=== PATIENT | male | born 1970 | race African-American/Black ===

== ENCOUNTER 2017-05-08 12:22 | Day surgery (SDC) | payer OTHER ==
[2017-05-04 15:10] VITALS: BMI 19.0
[2017-05-08] MEDS ORDERED: LIDOCAINE HCL/PF 2% SDV 5ML VIAL ONE (17:15)
[2017-05-08] MEDS ORDERED: PROPOFOL 20 ML ONE ×2 (17:15)
[2017-05-08] MEDS ORDERED: ceFAZolin SODIUM 1 GM VIAL IVPB ONE (17:25)
[2017-05-08] MEDS ORDERED: BUPIVACAINE HCL/PF 0.5% (5MG/ML) 10 ML VIAL ONE (17:29)
[2017-05-08] MEDS ORDERED: BUPIVACAINE HCL/PF 0.5% (5MG/ML) 10 ML VIAL IJ ONE (17:55)
--- NOTE | 2017-05-08 18:11 | OP ---
Operative Note - Note: Operative Date: 05/08/17 Pre-Operative Diagnosis: neoplasm of right testis Operation: right radical orchiectomy Findings: indurated mass involving right testis Post-Operative Diagnosis: Same as Pre-op Surgeon: Obi Johnson Anesthesia: General Specimens Removed: right testis
[2017-05-08] MEDS ORDERED: PROMETHAZINE HCL 25 MG/1 ML VIAL IVPUSH PRN (18:17)
[2017-05-08] MEDS ORDERED: oxyCODONE HCL 5 MG TABLET PO PRN (18:17)
[2017-05-08] MEDS ORDERED: ONDANSETRON 4 MG/2 ML VIAL IVPUSH PRN (18:17)
[2017-05-08] MEDS ORDERED: LACTATED RINGERS SOLUTION 1,000 ML IV SCH (18:30)
[2017-05-08 19:42] VITALS: BP 140/80; PULSE 64; TEMP 98
--- NOTE | 2017-05-09 08:04 | OP ---
DATE OF OPERATION: 05/08/2017 PREOPERATIVE DIAGNOSIS: Right testicular mass. POSTOPERATIVE DIAGNOSIS: Right testicular mass. PROCEDURE: Right radical orchiectomy. ATTENDING: Osmin Sexton MD ANESTHESIA: General. INDICATIONS: The patient has a history of a right testicular mass. The mass was documented on ultrasound and by physical examination. Tumor markers have been negative. The patient was warned that there was a possibility that no malignancy would be found, and this is a risk. However, given the presence of a neoplasm of uncertain behavior, it was recommended to remove the testes to evaluate the testes. The patient agreed to all risks and benefits of the procedure. He was also offered an opportunity to go for a second opinion which he did not feel was necessary. The patient was aware of the testicular mass and was able to palpate the mass himself. OPERATION: The patient was brought in the operating room, placed in supine position on the operating room table. Anesthesia and preoperative antibiotics were administered. A right inguinal incision was made. Sharp and blunt dissection was taken to the level of the spermatic cord. Spermatic cord was isolated. Spermatic cord and testes and all scrotal elements were brought exteriorly. The gubernaculum inferiorly was sharply and bluntly dissected, and electrocauterization was utilized. The scrotum was freed from any attachment to the testes and epididymis. Once this was accomplished, 2 clamps were placed on the spermatic cord. A knife was taken, and the cord was cut between the 2 clamps. The scrotal contents were sent to Pathology for evaluation. A suture ligature and a free tie were used for the proximal spermatic cord stump. The stitches were cut with a 2-inch in order to help identify the stump at a later date if need be. At this point, the wound was irrigated. A 2-layer closure was performed utilizing 3-0 Vicryl and subcuticular stitches. No complications were noted. Local anesthesia was placed into the wound. The disposition of the patient was to the recovery room. OSMIN SEXTON M.D. /[id number]
[2017-05-09] MEDS ORDERED: PATIENT'S OWN MEDICATION (NON-FORMULARY) (Oxycodone Hcl [Oxycodone Hcl] 10 MG) PO SCH (10:00)
[2017-05-09] MEDS ORDERED: GABAPENTIN 300 MG PO SCH (10:00)
[2017-05-09] MEDS ORDERED: CYCLOBENZAPRINE HCL PO SCH (22:00)
--- NOTE | 2017-05-12 16:26 | PATH ---
Surgical Pathology Report Patient Name: AVINASH RODGERS [facility]. Rec. #: [id number] /Age/Gender: 1970 (Age: 46) / M Account: [id number] Location: [facility] Taken: 05/08/2017 Received: 05/09/2017 Reported: 05/12/2017 Physicians: Obi Johnson Specimen(s) Received RIGHT TESTICLE Clinical History Benign neoplasm of right testis Final Diagnosis TESTIS, RADICAL ORCHIECTOMY: SERTOLI CELL NODULE WITH FOCAL CYSTIC CHANGE, 0.9 CM. SURROUNDING TESTICULAR TISSUE SHOW NORMAL SPERMATOGENESIS. SEE COMMENT. Comment: Immunohistochemical stains performed at [place], [place] ([id number]) and interpreted at [facility] show calretinin and Inhibin are focally positive (periphery), while negative for CD117 and OCT 3/4. Rare cells are positive for AE1/3. Electronically Signed Chelly Turner M.D. Gross Description Received in formalin labeled "right testicle," is a 30 g orchiectomy specimen including a 3.5 x 2.5 x 2.2 cm testicle, a 2.8 x 0.5 0.5 cm epididymis and a 5.5 cm in length portion of spermatic cord. Sectioning reveals a 0.9 x 0.8 x 0.6 cm saunders-faustin, cystic lesion at the inferior aspect of the testis, abutting the capsule. The remaining testis is unremarkable. Die Baker sections are submitted in 8 cassettes as follows: 1-spermatic cord margin of resection; 0-4-shovrtpc submitted lesion with surrounding normal parenchyma and capsule; 6-uninvolved normal testicular parenchyma and epididymis; 7-rete testis; 8-additional sections of spermatic cord. DL/05/09/2017 saudi05/09/2017
== END 2017-05-08 22:30 | disposition home or self-care (01) ==
LOC: JASU-SURG 12:22 → J5S 19:25 → JASU-SURG 22:30
PROVIDERS: ATTEND Urology
PROC: 0VT90ZZ Resection of Right Testis, Open Approach (ICD-10-PCS; principal; 2017-05-08 14:00)
DX: D40.11 Neoplasm of uncertain behavior of right testis (principal)
CPT/HCPCS: 88309-TC; 94760

== ENCOUNTER 2018-01-25 11:39 | Emergency (ER) | payer OTHER ==
--- NOTE | 2018-01-25 11:47 | PDOC ---
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 He states he was taking a shower, slipped and fell in the bathtub, bracing his fall with L hand. He c/o severe pain to L thumb and forefinger. He did not take anything prior to arrival. He states that he has dec sensation and ROM to his fingers at baseline, but he has decreased ROM today due to pain. No other injuries. Past History - Past Medical History Allergies/Adverse Reactions: Allergies Allergy/AdvReac Type Severity Reaction Status Date / Time No Known Allergies Allergy Verified 01/25/18 11:41 Home Medications: Ambulatory Orders NK [No Known Home Medication] 01/25/18 Anemia: No Asthma: No Cancer: No Cardiac Disorders: No CVA: No COPD: No CHF: No Dementia: No Diabetes: No GI Disorders: No Disorders: No HTN: No Hypercholesterolemia: No Liver Disease: No Seizures: No Thyroid Disease: No - Surgical History Orthopedic Surgery: Yes (hand sx-) - Suicide/Smoking/Psychosocial Hx Smoking History: Current every day smoker Have you smoked in the past 12 months: Yes Number of Cigarettes Smoked Daily: 10 'Breaking Loose' booklet given: 05/08/17 Hx Alcohol Use: Yes (rarely) Drug/Substance Use Hx: Yes (stoppeed 20 days ago) Substance Use Type: Alcohol, Marijuana Hx Substance Use Treatment: No Review of Systems - Review of Systems Able to Perform ROS?: Yes Comments:: GENERAL/CONSTITUTIONAL: No fever or chills. No weakness. HEAD, EYES, EARS, NOSE AND THROAT: No change in vision. No ear pain or discharge. No sore throat. MUSCULOSKELETAL: +Swelling and pain to L hand. No neck or back pain. SKIN: No rash NEUROLOGIC: No headache, vertigo, loss of consciousness, or change in strength/ sensation. *Physical Exam - Physical Exam Comments: GENERAL: Awake, alert, and fully oriented, in no acute distress HEAD: No signs of trauma EYES: PERRLA, EOMI, sclera anicteric, conjunctiva clear EXTREMITIES: +Tenderness and swelling to 1st and 2nd MCP joints of L hand with dec ROM due to pain. +Well-healed L wrist scar. Remainder of extremities with normal range of motion, no edema. No clubbing or cyanosis. No cords, erythema, or tenderness NEUROLOGICAL: Cranial nerves II through XII grossly intact. Normal speech, normal gait SKIN: Warm, Dry, normal turgor, no rashes or lesions noted. Medical Decision Making - Medical Decision Making 01/25/18 12:09 XR obtained to r/o fracture, percocet for pain. 01/25/18 12:57 XR reviewed, no acute findings. Stable for DC home. *DC/Admit/Observation/Transfer Diagnosis at time of Disposition: Hand sprain Qualifiers: Encounter type: initial encounter Laterality: left Qualified Code(s): S63.92XA - Sprain of unspecified part of left wrist and hand, initial encounter - Discharge Dispostion Disposition: HOME Condition at time of disposition: Stable Decision to Admit order: No - Referrals - Patient Instructions - Post Discharge Activity
[2018-01-25 11:58] VITALS: BP 126/81; PULSE 55; TEMP 98.2; BMI 22.6
== END 2018-01-25 13:06 | disposition home or self-care (01) ==
LOC: FER 11:39
DX: S63.92XA Sprain of unspecified part of left wrist and hand, initial encounter (principal); W18.39XA Other fall on same level, initial encounter; Y93.89 Activity, other specified; Y92.410 Unspecified street and highway as the place of occurrence of the external cause; F17.210 Nicotine dependence, cigarettes, uncomplicated
CPT/HCPCS: 73130-TC-LR-FY; 99282-25

== ENCOUNTER 2019-11-18 15:24 | Emergency (ER) | payer OTHER ==
--- NOTE | 2019-11-18 15:38 | PDOC ---
Rapid Medical Evaluation Time Seen by Provider: 11/18/19 15:37 Medical Evaluation: Allergies Allergy/AdvReac Type Severity Reaction Status Date / Time No Known Allergies Allergy Verified 06/26/19 10:19 11/18/19 15:38 I have performed a brief in-person evaluation of this patient. The patient presents with a chief complaint of:rhinorrhea Pertinent physical exam findings: stable, well theresa I have ordered the following:nothing The patient will proceed to the ED for further evaluation. Discharge Disposition - Diagnosis Rhinorrhea - Referrals - Patient Instructions - Post Discharge Activity
[2019-11-18 15:43] VITALS: BP 106/63; PULSE 64; BMI 22.6
--- NOTE | 2019-11-18 16:30 | PDOC ---
History of Present Illness - General Chief Complaint: Cold Symptoms Stated Complaint: RUNNING NOSE Time Seen by Provider: 11/18/19 15:37 History Source: Patient Exam Limitations: Clinical Condition - History of Present Illness Initial Comments: 11/18/19 16:31 Patient with no significant past medical history present with complaint of 2-day history of runny nose which most members in the household has been having runny nose. Denies any other symptoms. Denies fever, chills, cough, shortness of breath. Patient has not taken anything for the runny nose. Denies recent travel or sick contacts. Denies any other symptoms Is this a multiple visit Asthma Patient?: No Timing/Duration: other (2 days) Past History - Medical History Allergies/Adverse Reactions: Allergies Allergy/AdvReac Type Severity Reaction Status Date / Time No Known Allergies Allergy Verified 06/26/19 10:19 Home Medications: Ambulatory Orders Dextroamphetamine/Amphetamine [Adderall 5 mg Tablet] 5 mg PO DAILY 06/26/19 Dicyclomine HCl [Bentyl -] 10 mg PO Q6H #28 capsule 06/26/19 Loperamide HCl [Imodium -] 2 mg PO BID #14 capsule 06/26/19 Ondansetron HCl [Zofran] 4 mg PO TID #20 tablet 06/26/19 Ipratropium [place] 2 spray NS BID PRN #1 spray 11/18/19 Montelukast Na [Singulair -] 10 mg PO HS #7 tablet 11/18/19 Anemia: No Asthma: No Cancer: No Cardiac Disorders: No CVA: No COPD: No CHF: No Dementia: No Diabetes: No GI Disorders: No Disorders: No HTN: No Hypercholesterolemia: No Liver Disease: No Seizures: No Thyroid Disease: No - Surgical History Orthopedic Surgery: Yes (hand sx-) - Immunization History Immunization Up to Date: Yes - Psycho-Social/Smoking History Smoking History: Current every day smoker Have you smoked in the past 12 months: Yes Number of Cigarettes Smoked Daily: 10 Information on smoking cessation initiated: No 'Breaking Loose' booklet given: 05/08/17 - Substance Abuse Hx (Audit-C & DAST Scrn) How often the patient has a drink containing alcohol: Never Score: In Men: 4 or > Positive; In Women: 3 or > Positive: 0 Screen Result (Pos requires Nsg. Audit-10AR): Negative In the last yr the pt used illegal drug/Rx for NonMed reason: No Score: Yes response is considered Positive: 0 Screen Result (Positive result requires Nsg. DAST-10): Negative Review of Systems - Review of Systems Able to Perform ROS?: Yes Is the patient limited French proficient: No Constitutional: No: Chills, Fever, Malaise HEENTM: Yes: Symptoms Reported, See HPI, Nose Congestion. No: Eye Pain, Blurred Vision, Tearing, Recent change in vision, Double Vision, Cataracts, Ear Pain, Ocular Prothesis, Ear Discharge, Nose Pain, Tinnitus, Nose Bleeding, Hearing Loss, Throat Pain, Throat Swelling, Mouth Pain, Dental Problems, Difficulty Swallowing, Mouth Swelling, Other Respiratory: No: Symptoms reported, See HPI, Cough, Orthopnea, Shortness of Breath, SOB with Exertion, SOB at Rest, Stridor, Wheezing, Productive cough, Hemoptysis, Other Cardiac (ROS): No: Symptoms Reported, See HPI, Chest Pain, Edema, Irregular Heart Rate, Lightheadedness, Palpitations, Syncope, Chest Tightness, Other ABD/GI: No: Symptoms Reported, Nausea, Vomiting Neurological: No: Symptoms reported, Dizziness All Other Systems: Reviewed and Negative *Physical Exam - Vital Signs Last Vital Signs Temp Pulse Resp BP Pulse Ox 64 16 106/63 100 11/18/19 15:42 11/18/19 15:42 11/18/19 15:42 11/18/19 15:42 - Physical Exam 11/18/19 16:33 GENERAL: Well developed, well nourished. Awake and alert. No acute distress. HEENT: Normocephalic, atraumatic. PERRLA, EOMI. No conjunctival pallor. Sclera are non-icteric. Moist mucous membranes. Oropharynx is clear. NECK: Supple. Full ROM. CARDIOVASCULAR: Regular rate and rhythm. No murmurs, rubs, or gallops. Distal pulses are 2+ and symmetric. PULMONARY: No evidence of respiratory distress. Lungs clear to auscultation bilaterally. No wheezing, rales or rhonchi. MUSCULOSKELETAL Normal range of motion at all joints. SKIN: Warm and dry. Normal capillary refill. No rashes. No jaundice. NEUROLOGICAL: Alert, awake, appropriate. Gait is normal without ataxia. PSYCHIATRIC: Cooperative. Good eye contact. Appropriate mood General Appearance: Yes: Nourished, Appropriately Dressed. No: Apparent Distress Medical Decision Making - Medical Decision Making 11/18/19 16:32 Patient with no significant past medical history present with complaint of 2-day history of runny nose which most members in the household has been having runny nose. Denies any other symptoms. Denies fever, chills, cough, shortness of breath. Patient has not taken anything for the runny nose. Denies recent travel or sick contacts. Denies any other symptoms Clinical exam unremarkable except nasal congestion. Patient in no acute distress. Patient symptoms likely cold symptoms and stable for discharge on Atrovent nasal spray for nasal congestion and Singulair antihistamine with advised to increase fluid intake and follow-up with PCP Discharge - Discharge Information Problems reviewed: Yes Clinical Impression/Diagnosis: Rhinorrhea Condition: Stable Disposition: HOME - Admission No - Additional Discharge Information Prescriptions: Ipratropium [place] 2 spray NS BID PRN #1 spray PRN Reason: nasal congestion Montelukast Na [Singulair -] 10 mg PO HS #7 tablet - Follow up/Referral Referrals: Sera Cardona MD [Primary Care Provider] - - Patient Discharge Instructions Patient Printed Discharge Instructions: DI for Common Cold Additional Instructions: Use prescribed nasal spray as prescribed for runny nose. Increase fluid intake. Follow-up with primary care - Post Discharge Activity
== END 2019-11-18 16:35 | disposition home or self-care (01) ==
LOC: JER 15:24 → JERFT 15:24
DX: J34.89 Other specified disorders of nose and nasal sinuses (principal)
CPT/HCPCS: 99282-25